=== PATIENT | female | born 1965 | race African-American/Black ===

== ENCOUNTER 2017-01-24 16:39 | Emergency (ER) | payer OTHER ==
[~2017-01-24] VITALS: Ht 154.9 cm; Wt 59.1 kg
[~2017-01-24 16:39] MED LIST: PREG25 PO; TRAM50TA4 PO; ZOLP5 PO
[2017-01-24 18:08] VITALS: BP 142/81
== END 2017-01-24 18:32 | disposition home or self-care (01) ==
LOC: EMS 16:40
DX: J31.0 Chronic rhinitis (principal); I10 Essential (primary) hypertension; F17.210 Nicotine dependence, cigarettes, uncomplicated; F12.90 Cannabis use, unspecified, uncomplicated
CPT/HCPCS: 93005; 99283

== ENCOUNTER 2017-06-12 10:50 | Emergency (ER) | payer OTHER ==
[~2017-06-12] VITALS: Ht 154.9 cm; Wt 52.3 kg
[2017-06-12 11:22] VITALS: BP 128/75
[2017-06-12] MEDS ORDERED: GABA-533 PO (11:26)
== END 2017-06-12 13:30 | disposition left against medical advice (07) ==
LOC: EMS 10:54
DX: Z53.21 Procedure and treatment not carried out due to patient leaving prior to being seen by health care provider (principal)

== ENCOUNTER 2017-07-07 15:46 | Emergency (ER) | payer OTHER ==
[~2017-07-07] VITALS: Ht 154.9 cm; Wt 51.8 kg
[~2017-07-07 15:46] MED LIST changes: +GABA-533 PO
[2017-07-07] MEDS ORDERED: OXYMETAZOLINE HCL 0.05% 15 ML NASAL SPRAY NASAL ONE (17:00)
[2017-07-07] MEDS ORDERED: ACETAMINOPHEN 325 MG TABLET PO ONE (17:00)
[2017-07-07 18:22] VITALS: BP 143/80
== END 2017-07-07 18:33 | disposition home or self-care (01) ==
LOC: EMS 15:47
DX: J06.9 Acute upper respiratory infection, unspecified (principal); I10 Essential (primary) hypertension; F17.210 Nicotine dependence, cigarettes, uncomplicated; F12.90 Cannabis use, unspecified, uncomplicated
CPT/HCPCS: 99283; 99406

== ENCOUNTER 2018-04-02 22:15 | Emergency (ER) | payer OTHER ==
[~2018-04-02] VITALS: Ht 154.9 cm; Wt 50.9 kg
[2018-04-02] MEDS ORDERED: AMOX500T2 PO (22:34)
[2018-04-03] MEDS ORDERED: BACITRACIN 0.9 GM PACKET OINTMENT TP ONE (00:15)
[2018-04-03] MEDS ORDERED: HYDROGEN PEROXIDE 118 ML SOLUTION TP ONE (00:15)
[2018-04-03 00:45] VITALS: BP 153/96
== END 2018-04-03 00:30 | disposition home or self-care (01) ==
LOC: EMS 22:16
DX: S91.311A Laceration without foreign body, right foot, initial encounter (principal); F41.9 Anxiety disorder, unspecified; F32.9 Major depressive disorder, single episode, unspecified; I10 Essential (primary) hypertension; F17.210 Nicotine dependence, cigarettes, uncomplicated; F12.90 Cannabis use, unspecified, uncomplicated; W54.0XXA Bitten by dog, initial encounter; Y93.01 Activity, walking, marching and hiking; Y92.89 Other specified places as the place of occurrence of the external cause; Y99.8 Other external cause status
CPT/HCPCS: 99406

== ENCOUNTER 2018-06-29 12:17 | Emergency (ER) | payer OTHER ==
[~2018-06-29] VITALS: Ht 157.5 cm; Wt 54.5 kg
[~2018-06-29 12:17] MED LIST changes: +AMOX500T2 PO; -PREG25 PO; -TRAM50TA4 PO; -ZOLP5 PO
[2018-06-29] MEDS ORDERED: LORA10TA7 PO (12:32)
[2018-06-29] MEDS ORDERED: KETOROLAC TROMETHAMINE 30 MG/ML VIAL IM ONE (13:15)
[2018-06-29] MEDS ORDERED: FLUTICASONE PROPIONATE 50 MCG/SPRAY 16 GM NASAL SPRAY NASAL ONE (13:15)
[2018-06-29 14:30] VITALS: BP 119/75
== END 2018-06-29 14:30 | disposition home or self-care (01) ==
LOC: EMS 12:18
DX: J32.9 Chronic sinusitis, unspecified (principal); I10 Essential (primary) hypertension; J45.909 Unspecified asthma, uncomplicated; F41.9 Anxiety disorder, unspecified; F32.9 Major depressive disorder, single episode, unspecified; F12.90 Cannabis use, unspecified, uncomplicated; F17.210 Nicotine dependence, cigarettes, uncomplicated; Z79.899 Other long term (current) drug therapy
CPT/HCPCS: 96372; 99283; 99406; J1885

== ENCOUNTER 2018-11-13 19:48 | Emergency (ER) | payer OTHER ==
[~2018-11-13] VITALS: Ht 160 cm; Wt 45.5 kg
[~2018-11-13 19:48] MED LIST changes: -AMOX500T2 PO; -GABA-533 PO; +LORA10TA7 PO
[2018-11-13] MEDS ORDERED: GABA250S5 PO (20:12)
[2018-11-13] MEDS ORDERED: GABA-531 PO (20:16)
[2018-11-13 20:39] VITALS: BP 122/74
[2018-11-13] MEDS ORDERED: NEOMYCIN/BACITRACIN/POLYMYXIN/HYDROCORT 3.5 GM OPHTHALMIC OINTMENT OD ONE (21:15)
== END 2018-11-13 21:32 | disposition home or self-care (01) ==
LOC: EMS 19:49
DX: H93.8X1 Other specified disorders of right ear (principal); I10 Essential (primary) hypertension; F32.9 Major depressive disorder, single episode, unspecified; F41.9 Anxiety disorder, unspecified; J45.909 Unspecified asthma, uncomplicated; F12.90 Cannabis use, unspecified, uncomplicated; F17.210 Nicotine dependence, cigarettes, uncomplicated

== ENCOUNTER 2018-11-30 18:24 | Emergency (ER) | payer OTHER ==
[~2018-11-30] VITALS: Ht 162.6 cm; Wt 44.5 kg
[~2018-11-30 18:24] MED LIST changes: +GABA-531 PO
[2018-11-30] MEDS ORDERED: GABA-533 PO (18:41)
[2018-11-30 19:41] LABS: BASOPHILS % (AUTO) 0.7 % (0.0-2.0); EOSINOPHILS % (AUTO) 2.3 % (1.0-6.0); HEMATOCRIT 35.8 % (36-46); HEMOGLOBIN 11.6 g/dL (12.0-16.0); LYMPHOCYTES # (AUTO) 5.2 K/uL (1.0-4.8); LYMPHOCYTES % (AUTO) 65.3 % (22.0-44.0); MEAN CORPUSCULAR HEMOGLOBIN 32.7 pg (26.0-34.0); MEAN CORPUSCULAR HGB CONC 32.3 G/dL (31.0-37.0); MEAN CORPUSCULAR VOLUME 101 fL (80-100); MONOCYTES # (AUTO) 0.5 K/uL (0.1-1.0); MONOCYTES % (AUTO) 6.4 % (2.0-9.0); NEUTROPHILS % (AUTO) 25.3 % (40.0-70.0); PLATELET COUNT (AUTO) 269 K/uL (150-450); RED BLOOD CELL COUNT(AUTO) 3.54 MIL/uL (4.00-5.20); RED CELL DISTRIBUTION WIDTH 13.3 % (11.5-14.5)
[2018-11-30 19:54] LABS: ANION GAP 4 mmol/L (8-16); CALCIUM, TOTAL 9.5 mg/dL (8.8-10.5); CARBON DIOXIDE 29 mmol/L (22-29); CHLORIDE 105 mmol/L (98-107); GLOMERULAR FILTR. RATE CALC > 60 mL/min (>60); GLUCOSE,RANDOM 90 mg/dL (70-110); POTASSIUM 3.8 mmol/L (3.5-5.1); SODIUM SERUM 138 mmol/L (136-145); UREA NITROGEN, BLOOD 11 mg/dL (7-18)
[2018-11-30] MEDS ORDERED: IBUPROFEN 600 MG TABLET PO ONE (21:15)
[2018-11-30] MEDS ORDERED: ACETAMINOPHEN 500 MG TABLET PO ONE (21:15)
[2018-11-30 21:47] VITALS: BP 154/79
[2018-11-30 21:54] LABS: APPEARANCE,URINE CLOUDY (CLEAR); BILIRUBIN,URINE NEGATIVE (NEGATIVE); GLUCOSE, URINE (UA) NEGATIVE (NEGATIVE); KETONES,URINE NEGATIVE (NEGATIVE); LEUKOCYTE ESTERASE ,URINE SMALL (NEGATIVE); NITRATE,URINE NEGATIVE (NEGATIVE); OCCULT BLOOD,URINE NEGATIVE (NEGATIVE); PH,URINE 5.5 (5.0-8.0); PROTEIN,URINE NEGATIVE (NEGATIVE)
[2018-11-30 22:01] LABS: BACTERIA,URINE Few /HPF (None Seen); RBC,URINE 0-2 /HPF (0-2); SQUAMOUS EPITHELIAL CELL,UR Moderate /LPF (None Seen)
[2018-11-30 22:23] LABS: INFLUENZA TYPE A NEGATIVE FOR TYPE A (NEGATIVE); INFLUENZA TYPE B NEGATIVE FOR TYPE B (NEGATIVE)
[2018-11-30] MEDS: AMOX TR/POT CLAV 875 MG/125 MG TABLET PO ONE ×2 (22:51→22:56)
== END 2018-11-30 23:46 | disposition home or self-care (01) ==
LOC: EMS 18:26
DX: H66.93 Otitis media, unspecified, bilateral (principal); R51 Headache; N64.4 Mastodynia; M79.10 Myalgia, unspecified site; F41.9 Anxiety disorder, unspecified; J45.909 Unspecified asthma, uncomplicated; F32.9 Major depressive disorder, single episode, unspecified; I10 Essential (primary) hypertension; F17.210 Nicotine dependence, cigarettes, uncomplicated; F12.90 Cannabis use, unspecified, uncomplicated
CPT/HCPCS: 87086; 87804

== ENCOUNTER 2019-03-10 17:12 | Emergency (ER) | payer OTHER ==
[~2019-03-10] VITALS: Ht 160 cm; Wt 59.1 kg
[~2019-03-10 17:12] MED LIST changes: +GABA-533 PO
[2019-03-10 18:00] LABS: HEMATOCRIT 33.2 % (36-46); HEMOGLOBIN 11.1 g/dL (12.0-16.0); MEAN CORPUSCULAR HEMOGLOBIN 33.1 pg (26.0-34.0); MEAN CORPUSCULAR HGB CONC 33.5 G/dL (31.0-37.0); MEAN CORPUSCULAR VOLUME 99 fL (80-100); PLATELET COUNT (AUTO) 246 K/uL (150-450); RED BLOOD CELL COUNT(AUTO) 3.37 MIL/uL (4.00-5.20); RED CELL DISTRIBUTION WIDTH 13.4 % (11.5-14.5)
[2019-03-10 18:10] LABS: ANION GAP 9 mmol/L (8-16); CALCIUM, TOTAL 9.8 mg/dL (8.8-10.5); CARBON DIOXIDE 28 mmol/L (22-29); CHLORIDE 108 mmol/L (98-107); CREATININE 0.96 mg/dL (0.60-1.30); GLOMERULAR FILTR. RATE CALC > 60 mL/min (>60); GLUCOSE,RANDOM 84 mg/dL (70-110); POTASSIUM 3.6 mmol/L (3.5-5.1); SODIUM SERUM 145 mmol/L (136-145); UREA NITROGEN, BLOOD 13 mg/dL (7-18)
[2019-03-10 18:15] LABS: ALANINE AMINOTRANSFERASE 15 U/L (12-78); ALBUMIN 3.5 g/dL (3.4-5.0); ALKALINE PHOSPHATASE 73 U/L (46-116); ASPARTATE AMINOTRANSFERASE 21 U/L (15-37); BILIRUBIN,TOTAL 0.2 mg/dL (0.1-1.0); TOTAL PROTEIN, SERUM 7.2 g/dL (6.4-8.2)
[2019-03-10 18:37] LABS: BAND NEUTROPHILS % (MANUAL) 0 % (0-5)
[2019-03-10 18:38] LABS: BASOPHILS % (MANUAL) 2 % (0-2); EOSINOPHILS % (MANUAL) 5 % (1-6); LYMPHOCYTES % (MANUAL) 57 % (22-44); MONOCYTES % (MANUAL) 7 % (2-9); PLATELET MORPHOLOGY COMMENT GIANT PLTS PRESENT; SEGMENTED NEUTROPHILS % 29 % (40-70)
[2019-03-10 18:40] LABS: WBC MORPHOLOGY SMUDGE CELLS PRESENT
[2019-03-10 18:43] VITALS: BP 148/67
[2019-03-11] MEDS ORDERED: ALBUTEROL SULFATE 2.5 MG/0.5 ML NEB SOLUTION NEB ONE (08:30)
== END 2019-03-10 19:20 | disposition home or self-care (01) ==
LOC: EMS 17:13
DX: J40 Bronchitis, not specified as acute or chronic (principal); R07.81 Pleurodynia; F32.9 Major depressive disorder, single episode, unspecified; F41.9 Anxiety disorder, unspecified; I10 Essential (primary) hypertension; F17.210 Nicotine dependence, cigarettes, uncomplicated; F12.90 Cannabis use, unspecified, uncomplicated
CPT/HCPCS: 93005

== ENCOUNTER 2019-03-17 18:33 | Emergency (ER) | payer OTHER ==
[~2019-03-17] VITALS: Ht 152.4 cm; Wt 45.5 kg
[2019-03-17] MEDS ORDERED: GABA-529 PO (18:48)
[2019-03-17] MEDS ORDERED: DIPH25 PO (18:48)
[2019-03-17 21:38] LABS: BASOPHILS % (AUTO) 0.6 % (0.0-2.0); EOSINOPHILS % (AUTO) 2.7 % (1.0-6.0); HEMATOCRIT 32.6 % (36-46); HEMOGLOBIN 10.9 g/dL (12.0-16.0); LYMPHOCYTES # (AUTO) 4.9 K/uL (1.0-4.8); LYMPHOCYTES % (AUTO) 53.3 % (22.0-44.0); MEAN CORPUSCULAR HEMOGLOBIN 33.2 pg (26.0-34.0); MEAN CORPUSCULAR HGB CONC 33.5 G/dL (31.0-37.0); MEAN CORPUSCULAR VOLUME 99 fL (80-100); MONOCYTES # (AUTO) 0.5 K/uL (0.1-1.0); MONOCYTES % (AUTO) 5.5 % (2.0-9.0); NEUTROPHILS # (AUTO) 3.5 K/uL (1.8-7.7); NEUTROPHILS % (AUTO) 37.9 % (40.0-70.0); PLATELET COUNT (AUTO) 251 K/uL (150-450); RED CELL DISTRIBUTION WIDTH 13.5 % (11.5-14.5)
[2019-03-17 21:50] LABS: ANION GAP 6 mmol/L (8-16); CALCIUM, TOTAL 9.2 mg/dL (8.8-10.5); CARBON DIOXIDE 27 mmol/L (22-29); CHLORIDE 108 mmol/L (98-107); CREATININE 0.79 mg/dL (0.60-1.30); GLOMERULAR FILTR. RATE CALC > 60 mL/min (>60); GLUCOSE,RANDOM 73 mg/dL (70-110); POTASSIUM 3.8 mmol/L (3.5-5.1); SODIUM SERUM 141 mmol/L (136-145); UREA NITROGEN, BLOOD 9 mg/dL (7-18)
[2019-03-17 21:57] LABS: ALANINE AMINOTRANSFERASE 11 U/L (12-78); ALBUMIN 3.6 g/dL (3.4-5.0); ALKALINE PHOSPHATASE 76 U/L (46-116); ASPARTATE AMINOTRANSFERASE 20 U/L (15-37); BILIRUBIN,TOTAL 0.2 mg/dL (0.1-1.0); LIPASE 127 U/L (73-393); TOTAL PROTEIN, SERUM 7.4 g/dL (6.4-8.2)
[2019-03-17 22:36] LABS: APPEARANCE,URINE CLEAR (CLEAR); BILIRUBIN,URINE NEGATIVE (NEGATIVE); GLUCOSE, URINE (UA) NEGATIVE (NEGATIVE); KETONES,URINE NEGATIVE (NEGATIVE); LEUKOCYTE ESTERASE ,URINE MODERATE (NEGATIVE); NITRATE,URINE NEGATIVE (NEGATIVE); OCCULT BLOOD,URINE NEGATIVE (NEGATIVE); PH,URINE 6.5 (5.0-8.0); PROTEIN,URINE NEGATIVE (NEGATIVE)
[2019-03-17 23:00] LABS: BACTERIA,URINE Rare /HPF (None Seen); RBC,URINE 0-2 /HPF (0-2); SQUAMOUS EPITHELIAL CELL,UR Moderate /LPF (None Seen)
[2019-03-18 00:20] VITALS: BP 157/84
== END 2019-03-18 00:15 | disposition left against medical advice (07) ==
LOC: EMS 18:35
DX: R07.89 Other chest pain (principal); I10 Essential (primary) hypertension; J44.9 Chronic obstructive pulmonary disease, unspecified; F32.9 Major depressive disorder, single episode, unspecified; F17.210 Nicotine dependence, cigarettes, uncomplicated; F12.90 Cannabis use, unspecified, uncomplicated; Z98.890 Other specified postprocedural states; Z79.899 Other long term (current) drug therapy
CPT/HCPCS: 85379; 87086; 93005

== ENCOUNTER 2019-05-05 20:04 | Emergency (ER) | payer OTHER ==
[~2019-05-05] VITALS: Ht 154.9 cm; Wt 50.0 kg
[~2019-05-05 20:04] MED LIST changes: +DIPH25 PO; +GABA-529 PO; -GABA-531 PO; -GABA-533 PO; -LORA10TA7 PO
[2019-05-05 22:27] LABS: BASOPHILS % (AUTO) 0.7 % (0.0-2.0); EOSINOPHILS % (AUTO) 2.1 % (1.0-6.0); HEMATOCRIT 35.2 % (36-46); HEMOGLOBIN 11.9 g/dL (12.0-16.0); LYMPHOCYTES # (AUTO) 4.7 K/uL (1.0-4.8); LYMPHOCYTES % (AUTO) 61.6 % (22.0-44.0); MEAN CORPUSCULAR HEMOGLOBIN 33.6 pg (26.0-34.0); MEAN CORPUSCULAR HGB CONC 33.9 G/dL (31.0-37.0); MEAN CORPUSCULAR VOLUME 99 fL (80-100); MONOCYTES # (AUTO) 0.4 K/uL (0.1-1.0); MONOCYTES % (AUTO) 5.8 % (2.0-9.0); NEUTROPHILS # (AUTO) 2.3 K/uL (1.8-7.7); NEUTROPHILS % (AUTO) 29.8 % (40.0-70.0); PLATELET COUNT (AUTO) 303 K/uL (150-450); RED BLOOD CELL COUNT(AUTO) 3.55 MIL/uL (4.00-5.20); RED CELL DISTRIBUTION WIDTH 13.5 % (11.5-14.5)
[2019-05-05 22:39] LABS: ANION GAP 9 mmol/L (8-16); CALCIUM, TOTAL 9.6 mg/dL (8.8-10.5); CARBON DIOXIDE 29 mmol/L (22-29); CHLORIDE 107 mmol/L (98-107); CREATININE 0.59 mg/dL (0.60-1.30); GLOMERULAR FILTR. RATE CALC > 60 mL/min (>60); GLUCOSE,RANDOM 76 mg/dL (70-110); SODIUM SERUM 145 mmol/L (136-145); UREA NITROGEN, BLOOD 13 mg/dL (7-18)
[2019-05-05 22:45] LABS: ALANINE AMINOTRANSFERASE 17 U/L (12-78); ALBUMIN 3.8 g/dL (3.4-5.0); ALKALINE PHOSPHATASE 85 U/L (46-116); ASPARTATE AMINOTRANSFERASE 23 U/L (15-37); BILIRUBIN,TOTAL 0.2 mg/dL (0.1-1.0); TOTAL PROTEIN, SERUM 7.5 g/dL (6.4-8.2)
[2019-05-05] MEDS ORDERED: IBUPROFEN 400 MG TABLET PO ONE (23:45)
[2019-05-06 00:15] VITALS: BP 138/77
[2019-05-06] MEDS ORDERED: DiphenhydrAMINE HCL 25 MG CAPSULE PO ONE (00:30)
[2019-05-06] MEDS ORDERED: AMOX TR/POT CLAV 500 MG/125 MG TABLET PO ONE (00:30)
== END 2019-05-06 04:20 | disposition home or self-care (01) ==
LOC: EMS 20:05
DX: J31.0 Chronic rhinitis (principal); I10 Essential (primary) hypertension; J44.9 Chronic obstructive pulmonary disease, unspecified; F41.9 Anxiety disorder, unspecified; F32.9 Major depressive disorder, single episode, unspecified; F17.210 Nicotine dependence, cigarettes, uncomplicated; F12.90 Cannabis use, unspecified, uncomplicated; Z79.899 Other long term (current) drug therapy; Z98.890 Other specified postprocedural states; Z91.018 Allergy to other foods
CPT/HCPCS: 36415; 80053; 85025; 99284; G0480

== ENCOUNTER 2020-05-02 10:07 | Emergency (ER) | payer OTHER ==
[~2020-05-02] VITALS: Ht 154.9 cm; Wt 48.6 kg
[~2020-05-02 10:07] MED LIST changes: +GABA-1216 PO; -GABA-529 PO
[2020-05-02] MEDS ORDERED: GABA-1201 PO (10:20)
[2020-05-02 11:15] VITALS: BP 104/78
== END 2020-05-02 11:18 | disposition home or self-care (01) ==
LOC: EMS 10:07
DX: H65.02 Acute serous otitis media, left ear (principal); F17.210 Nicotine dependence, cigarettes, uncomplicated; F41.9 Anxiety disorder, unspecified; J45.909 Unspecified asthma, uncomplicated; F32.9 Major depressive disorder, single episode, unspecified; I10 Essential (primary) hypertension; F12.90 Cannabis use, unspecified, uncomplicated; Z91.018 Allergy to other foods
CPT/HCPCS: 99406

== ENCOUNTER 2020-06-15 09:38 | Emergency (ER) | payer OTHER ==
[~2020-06-15] VITALS: Ht 157.5 cm; Wt 61.4 kg
[~2020-06-15 09:38] MED LIST changes: +GABA-1201 PO; -GABA-1216 PO
[2020-06-15] MEDS ORDERED: AMOX TR/POT CLAV 875 MG/125 MG TABLET PO ONE (10:15)
[2020-06-15] MEDS ORDERED: ACETAMINOPHEN 500 MG TABLET PO ONE (10:15)
[2020-06-15 10:59] VITALS: BP 110/70
== END 2020-06-15 11:05 | disposition home or self-care (01) ==
LOC: EMS 09:46
DX: H66.92 Otitis media, unspecified, left ear (principal); J45.909 Unspecified asthma, uncomplicated; F32.9 Major depressive disorder, single episode, unspecified; F41.9 Anxiety disorder, unspecified; I10 Essential (primary) hypertension; F17.210 Nicotine dependence, cigarettes, uncomplicated; F12.90 Cannabis use, unspecified, uncomplicated; Z91.018 Allergy to other foods
CPT/HCPCS: 99283

== ENCOUNTER 2020-08-07 18:46 | Emergency (ER) | payer OTHER ==
[~2020-08-07] VITALS: Ht 157.5 cm; Wt 63.4 kg
[2020-08-07 18:47] VITALS: BP 102/55
[2020-08-07] MEDS ORDERED: BACITRACIN 0.9 GM PACKET OINTMENT TP ONE (20:00)
== END 2020-08-07 20:16 | disposition home or self-care (01) ==
LOC: EMS 18:48
DX: T16.2XXA Foreign body in left ear, initial encounter (principal); L08.9 Local infection of the skin and subcutaneous tissue, unspecified; J45.909 Unspecified asthma, uncomplicated; F41.9 Anxiety disorder, unspecified; I10 Essential (primary) hypertension; F32.9 Major depressive disorder, single episode, unspecified; F17.210 Nicotine dependence, cigarettes, uncomplicated; Z91.018 Allergy to other foods; W45.8XXA Other foreign body or object entering through skin, initial encounter; Y93.89 Activity, other specified; Y92.89 Other specified places as the place of occurrence of the external cause; Y99.8 Other external cause status
CPT/HCPCS: 99281; Z7502

== ENCOUNTER 2020-09-08 11:04 | Emergency (ER) | payer OTHER ==
[~2020-09-08] VITALS: Ht 157.5 cm; Wt 63.4 kg
[2020-09-08] MEDS ORDERED: IBUPROFEN 800 MG TABLET PO ONE (13:00)
[2020-09-08 13:22] VITALS: BP 127/65
== END 2020-09-08 13:36 | disposition home or self-care (01) ==
LOC: EMS 11:07
DX: H65.01 Acute serous otitis media, right ear (principal); H60.92 Unspecified otitis externa, left ear; J45.909 Unspecified asthma, uncomplicated; F41.9 Anxiety disorder, unspecified; F32.9 Major depressive disorder, single episode, unspecified; F17.210 Nicotine dependence, cigarettes, uncomplicated
CPT/HCPCS: 99282; 99283

== ENCOUNTER 2020-09-29 10:37 | Emergency (ER) | payer OTHER ==
[~2020-09-29] VITALS: Ht 157.5 cm; Wt 54.5 kg
[2020-09-29] MEDS ORDERED: NEOMYCIN/BACITRACIN/POLYMYXIN B OINTMENT PACKET TP ONE (11:15)
[2020-09-29 11:20] VITALS: BP 119/77
== END 2020-09-29 11:37 | disposition home or self-care (01) ==
LOC: EMS 10:41
DX: H60.11 Cellulitis of right external ear (principal); F41.9 Anxiety disorder, unspecified; J44.9 Chronic obstructive pulmonary disease, unspecified; F32.9 Major depressive disorder, single episode, unspecified; I10 Essential (primary) hypertension; F17.210 Nicotine dependence, cigarettes, uncomplicated; Z90.89 Acquired absence of other organs; Z91.018 Allergy to other foods; Z79.899 Other long term (current) drug therapy
CPT/HCPCS: 99283

== ENCOUNTER 2020-10-30 21:39 | Emergency (ER) | payer OTHER ==
[~2020-10-30] VITALS: Ht 154.9 cm; Wt 49.1 kg
[2020-10-30 22:13] VITALS: BP 124/83
[2020-10-30] MEDS ORDERED: HYDROCODONE/ACETAMINOPHEN 5-325 MG TABLET PO ONE (22:15)
== END 2020-10-30 22:40 | disposition home or self-care (01) ==
LOC: EMS 21:40
DX: G89.29 Other chronic pain (principal); H92.02 Otalgia, left ear; J45.909 Unspecified asthma, uncomplicated; F32.9 Major depressive disorder, single episode, unspecified; I10 Essential (primary) hypertension; F41.9 Anxiety disorder, unspecified; Z91.018 Allergy to other foods; Z79.899 Other long term (current) drug therapy
CPT/HCPCS: 99283

== ENCOUNTER 2020-11-04 12:08 | Emergency (ER) | payer OTHER ==
[~2020-11-04] VITALS: Ht 162.6 cm; Wt 54.5 kg
[2020-11-04 13:27] VITALS: BP 136/70
== END 2020-11-04 13:33 | disposition home or self-care (01) ==
LOC: EMS 12:09
DX: H60.92 Unspecified otitis externa, left ear (principal); R09.81 Nasal congestion; J45.909 Unspecified asthma, uncomplicated; F32.9 Major depressive disorder, single episode, unspecified; I10 Essential (primary) hypertension; F41.9 Anxiety disorder, unspecified; F17.210 Nicotine dependence, cigarettes, uncomplicated; F12.90 Cannabis use, unspecified, uncomplicated; Z91.018 Allergy to other foods
CPT/HCPCS: 99283; Z7502

== ENCOUNTER 2020-11-30 18:21 | Emergency (ER) | payer OTHER ==
[~2020-11-30] VITALS: Ht 162.6 cm; Wt 61.4 kg
[2020-11-30 22:12] VITALS: BP 117/63
== END 2020-11-30 22:16 | disposition home or self-care (01) ==
LOC: EMS 18:23
DX: S50.01XA Contusion of right elbow, initial encounter (principal); F41.9 Anxiety disorder, unspecified; J45.909 Unspecified asthma, uncomplicated; F32.9 Major depressive disorder, single episode, unspecified; I10 Essential (primary) hypertension; F17.210 Nicotine dependence, cigarettes, uncomplicated; F12.90 Cannabis use, unspecified, uncomplicated; Z91.018 Allergy to other foods; W01.0XXA Fall on same level from slipping, tripping and stumbling without subsequent striking against object, initial encounter; Y93.89 Activity, other specified; Y92.89 Other specified places as the place of occurrence of the external cause; Y99.8 Other external cause status
CPT/HCPCS: 99283

== ENCOUNTER 2021-02-23 13:01 | Emergency (ER) | payer OTHER ==
[~2021-02-23] VITALS: Ht 154.9 cm; Wt 50.0 kg
[2021-02-23 13:07] VITALS: BP 107/74
== END 2021-02-23 14:42 | disposition home or self-care (01) ==
LOC: EMS 13:03
DX: F41.9 Anxiety disorder, unspecified (principal); I10 Essential (primary) hypertension; J44.9 Chronic obstructive pulmonary disease, unspecified
CPT/HCPCS: 99281; 99283

== ENCOUNTER 2021-04-23 18:23 | Emergency (ER) | payer OTHER | END 2021-04-23 19:50 | disposition left against medical advice (07) | LOC: EMS 18:24 | DX: T17.208A Unspecified foreign body in pharynx causing other injury, initial encounter (principal); X58.XXXA Exposure to other specified factors, initial encounter; Y93.89 Activity, other specified; Y92.89 Other specified places as the place of occurrence of the external cause; Y99.8 Other external cause status; Z53.21 Procedure and treatment not carried out due to patient leaving prior to being seen by health care provider ==

== ENCOUNTER 2021-08-20 10:12 | Emergency (ER) | payer OTHER ==
[~2021-08-20] VITALS: Ht 154.9 cm; Wt 44.5 kg
[2021-08-20 10:19] VITALS: BP 122/77
[2021-08-20] MEDS ORDERED: ACETAMINOPHEN 325 MG TABLET PO ONE (11:15)
== END 2021-08-20 11:35 | disposition left against medical advice (07) ==
LOC: EMS 10:12
DX: H92.02 Otalgia, left ear (principal); M54.2 Cervicalgia; F17.210 Nicotine dependence, cigarettes, uncomplicated; Z91.018 Allergy to other foods
CPT/HCPCS: 99281; Z7502

== ENCOUNTER 2021-09-29 14:54 | Emergency (ER) | payer OTHER ==
[~2021-09-29] VITALS: Ht 154.9 cm; Wt 59.1 kg
[2021-09-29 16:01] VITALS: BP 127/84
== END 2021-09-29 16:30 | disposition left against medical advice (07) ==
LOC: EMS 14:54
DX: R45.851 Suicidal ideations (principal); F17.210 Nicotine dependence, cigarettes, uncomplicated; Z91.018 Allergy to other foods; Z79.899 Other long term (current) drug therapy
CPT/HCPCS: 99284

== ENCOUNTER 2022-01-13 11:01 | Emergency (ER) | payer OTHER ==
[~2022-01-13] VITALS: Ht 154.9 cm; Wt 45.5 kg
[2022-01-13] MEDS ORDERED: GABA-1181 PO (11:15)
[2022-01-13] MEDS ORDERED: ACETAMINOPHEN 325 MG TABLET PO ONE (12:00)
[2022-01-13] MEDS ORDERED: IBUPROFEN 600 MG TABLET PO ONE (12:00)
[2022-01-13 12:24] LABS: COVID AG,FIA SOURCE NASOPHARYNGEAL
[2022-01-13 12:40] LABS: RAPID GROUP A STREP NEGATIVE (NEGATIVE)
[2022-01-13] MEDS ORDERED: ACET-2247 PO (12:42)
[2022-01-13 12:43] LABS: INFLUENZA TYPE A NEGATIVE FOR TYPE A (NEGATIVE); INFLUENZA TYPE B NEGATIVE FOR TYPE B (NEGATIVE)
[2022-01-13 13:07] VITALS: BP 112/63
[2022-01-13] MEDS ORDERED: IBUP-1506 PO (13:20)
== END 2022-01-13 13:39 | disposition home or self-care (01) ==
LOC: EMS 11:03
DX: H92.03 Otalgia, bilateral (principal); G89.29 Other chronic pain; Z20.822 Contact with and (suspected) exposure to COVID-19; F12.90 Cannabis use, unspecified, uncomplicated
CPT/HCPCS: 87430; 87804; 99283

== ENCOUNTER 2022-01-22 09:51 | Emergency (ER) | payer OTHER ==
[~2022-01-22] VITALS: Ht 154.9 cm; Wt 47.3 kg
[~2022-01-22 09:51] MED LIST changes: +ACET-2247 PO; +GABA-1181 PO; -GABA-1201 PO; +IBUP-1506 PO
[2022-01-22 11:08] VITALS: BP 120/55
== END 2022-01-22 11:32 | disposition left against medical advice (07) ==
LOC: EMS 10:37
DX: Z53.21 Procedure and treatment not carried out due to patient leaving prior to being seen by health care provider (principal)

== ENCOUNTER 2022-02-16 10:38 | Emergency (ER) | payer OTHER ==
[~2022-02-16] VITALS: Ht 157.5 cm; Wt 52.3 kg
[~2022-02-16 10:38] MED LIST changes: -DIPH25 PO; -IBUP-1506 PO
[2022-02-16 12:05] LABS: BASOPHILS % (AUTO) 0.6 % (0.0-2.0); EOSINOPHILS % (AUTO) 1.6 % (1.0-6.0); HEMATOCRIT 37.3 % (36-46); HEMOGLOBIN 12.5 g/dL (12.0-16.0); LYMPHOCYTES # (AUTO) 4.2 K/uL (1.0-4.8); LYMPHOCYTES % (AUTO) 68.9 % (22.0-44.0); MEAN CORPUSCULAR HEMOGLOBIN 32.5 pg (26.0-34.0); MEAN CORPUSCULAR HGB CONC 33.4 G/dL (31.0-37.0); MEAN CORPUSCULAR VOLUME 97 fL (80-100); MONOCYTES # (AUTO) 0.6 K/uL (0.1-1.0); MONOCYTES % (AUTO) 9.8 % (2.0-9.0); NEUTROPHILS # (AUTO) 1.2 K/uL (1.8-7.7); NEUTROPHILS % (AUTO) 19.1 % (40.0-70.0); PLATELET COUNT (AUTO) 200 K/uL (150-450); RED BLOOD CELL COUNT(AUTO) 3.83 MIL/uL (4.00-5.20); RED CELL DISTRIBUTION WIDTH 13.2 % (11.5-14.5)
[2022-02-16 12:13] LABS: ANION GAP 4 mmol/L (8-16); CALCIUM, TOTAL 10.2 mg/dL (8.8-10.5); CARBON DIOXIDE 30 mmol/L (22-29); CHLORIDE 103 mmol/L (98-107); CREATININE 0.73 mg/dL (0.60-1.30); GLUCOSE,RANDOM 87 mg/dL (70-110); POTASSIUM 4.2 mmol/L (3.5-5.1); SODIUM SERUM 137 mmol/L (136-145); UREA NITROGEN, BLOOD 12 mg/dL (7-18)
[2022-02-16 12:14] LABS: GLOMERULAR FILTR. RATE CALC > 60 mL/min (>60)
[2022-02-16 12:19] LABS: ALANINE AMINOTRANSFERASE 20 U/L (12-78); ALBUMIN 3.8 g/dL (3.4-5.0); ALKALINE PHOSPHATASE 66 U/L (46-116); ASPARTATE AMINOTRANSFERASE 27 U/L (15-37); BILIRUBIN,TOTAL 0.5 mg/dL (0.1-1.0); TOTAL PROTEIN, SERUM 7.9 g/dL (6.4-8.2)
[2022-02-16 12:26] LABS: PLATELET MORPHOLOGY COMMENT LARGE PLTS PRESENT
[2022-02-16] MEDS: KETOROLAC TROMETHAMINE 30 MG/ML VIAL IM ONE ×3 (13:18→13:25)
[2022-02-16 13:35] VITALS: BP 122/70
== END 2022-02-16 13:47 | disposition home or self-care (01) ==
LOC: EMS 10:41
DX: F06.4 Anxiety disorder due to known physiological condition (principal); D21.9 Benign neoplasm of connective and other soft tissue, unspecified; F17.210 Nicotine dependence, cigarettes, uncomplicated; F12.90 Cannabis use, unspecified, uncomplicated; Z91.09 Other allergy status, other than to drugs and biological substances; Z98.890 Other specified postprocedural states
CPT/HCPCS: 99285; 71045; 80053; 84484; 85025; 36415; 93005; 96372; J1885

== ENCOUNTER 2022-03-14 11:56 | Emergency (ER) | payer OTHER ==
[~2022-03-14] VITALS: Ht 154.9 cm; Wt 46.8 kg
[~2022-03-14 11:56] MED LIST changes: -ACET-2247 PO
[2022-03-14 12:15] VITALS: BP 108/69
== END 2022-03-14 14:27 | disposition home or self-care (01) ==
LOC: EMS 11:56
DX: K14.8 Other diseases of tongue (principal); J44.9 Chronic obstructive pulmonary disease, unspecified; I10 Essential (primary) hypertension; D21.9 Benign neoplasm of connective and other soft tissue, unspecified; F17.210 Nicotine dependence, cigarettes, uncomplicated; F12.90 Cannabis use, unspecified, uncomplicated; Z98.890 Other specified postprocedural states; Z91.018 Allergy to other foods
CPT/HCPCS: 99281; Z7502

== ENCOUNTER 2022-04-10 14:34 | Emergency (ER) | payer OTHER ==
[~2022-04-10] VITALS: Ht 154.9 cm; Wt 50.0 kg
[2022-04-10 16:10] VITALS: BP 118/73
[2022-04-10] MEDS ORDERED: BENZOCAINE 10% 7 GM GEL TP ONE (16:30)
== END 2022-04-10 16:48 | disposition home or self-care (01) ==
LOC: EMS 14:36
DX: G89.4 Chronic pain syndrome (principal); F17.210 Nicotine dependence, cigarettes, uncomplicated; F12.90 Cannabis use, unspecified, uncomplicated; J44.9 Chronic obstructive pulmonary disease, unspecified; I10 Essential (primary) hypertension; D21.9 Benign neoplasm of connective and other soft tissue, unspecified; M62.838 Other muscle spasm; R01.1 Cardiac murmur, unspecified; Z90.89 Acquired absence of other organs; Z91.018 Allergy to other foods
CPT/HCPCS: 99282; Z7502; Z7610

== ENCOUNTER 2022-04-30 00:37 | Emergency (ER) | payer OTHER ==
[~2022-04-30] VITALS: Ht 154.9 cm; Wt 40.9 kg
[2022-04-30 01:53] VITALS: BP 124/75
[2022-04-30] MEDS ORDERED: PROCTOCM TP (01:55)
== END 2022-04-30 03:07 | disposition home or self-care (01) ==
LOC: EMS 00:38
DX: K64.4 Residual hemorrhoidal skin tags (principal); F41.9 Anxiety disorder, unspecified; J44.9 Chronic obstructive pulmonary disease, unspecified; I10 Essential (primary) hypertension; D21.9 Benign neoplasm of connective and other soft tissue, unspecified; G89.29 Other chronic pain; F12.90 Cannabis use, unspecified, uncomplicated; F17.210 Nicotine dependence, cigarettes, uncomplicated; Z91.018 Allergy to other foods; Z98.890 Other specified postprocedural states
CPT/HCPCS: 99282; Z7502

== ENCOUNTER 2023-12-16 00:03 | Emergency (ER) | payer OTHER ==
[~2023-12-16] VITALS: Ht 154.9 cm; Wt 49.1 kg
[~2023-12-16 00:03] MED LIST changes: +PROCTOCM TP
[2023-12-16 00:10] VITALS: BP 107/66; PULSE 92; RESP 16; TEMP 98.9; O2SAT 99
[2023-12-16] MEDS: ACETAMINOPHEN 325 MG TABLET PO ONE (01:43)
== END 2023-12-16 04:07 | disposition home or self-care (01) ==
LOC: EMS 00:07
DX: S90.32XA Contusion of left foot, initial encounter (principal); J44.9 Chronic obstructive pulmonary disease, unspecified; I10 Essential (primary) hypertension; F17.210 Nicotine dependence, cigarettes, uncomplicated; F12.90 Cannabis use, unspecified, uncomplicated; Z91.018 Allergy to other foods; W22.8XXA Striking against or struck by other objects, initial encounter; Y93.89 Activity, other specified; Y92.89 Other specified places as the place of occurrence of the external cause; Y99.8 Other external cause status
CPT/HCPCS: 99283

== ENCOUNTER 2024-05-22 09:50 | Emergency (ER) | payer OTHER ==
[~2024-05-22] VITALS: Ht 154.9 cm; Wt 54.5 kg
[2024-05-22 09:54] VITALS: BP 104/51; PULSE 84; RESP 18; TEMP 98.2; O2SAT 100
== END 2024-05-22 11:02 | disposition left against medical advice (07) ==
LOC: EMS 10:00
DX: R09.81 Nasal congestion (principal); Z53.21 Procedure and treatment not carried out due to patient leaving prior to being seen by health care provider

== ENCOUNTER 2024-06-09 13:27 | Emergency (ER) | payer OTHER ==
[~2024-06-09] VITALS: Ht 154.9 cm; Wt 51.4 kg
[~2024-06-09 13:27] MED LIST changes: -PROCTOCM TP
[2024-06-09 13:34] VITALS: BP 123/60; PULSE 98; RESP 18; TEMP 97.9; O2SAT 100
[2024-06-09] MEDS ORDERED: OLAN7.5T22 PO (13:35)
[2024-06-09] MEDS ORDERED: HYDR-4062 PO (15:31)
[2024-06-09] MEDS ORDERED: CEPH-558 PO (15:31)
[2024-06-09] MEDS ORDERED: BACI28.410 TP (15:31)
[2024-06-09] MEDS ORDERED: GABA-1181 PO (15:33)
== END 2024-06-09 15:50 | disposition home or self-care (01) ==
LOC: EMS 13:28
DX: S91.332A Puncture wound without foreign body, left foot, initial encounter (principal); F17.210 Nicotine dependence, cigarettes, uncomplicated; J44.9 Chronic obstructive pulmonary disease, unspecified; I10 Essential (primary) hypertension; Z79.899 Other long term (current) drug therapy; Z88.6 Allergy status to analgesic agent; Z90.89 Acquired absence of other organs; Z98.890 Other specified postprocedural states; W22.8XXA Striking against or struck by other objects, initial encounter; Y93.01 Activity, walking, marching and hiking; Y92.89 Other specified places as the place of occurrence of the external cause; Y99.8 Other external cause status
CPT/HCPCS: 99283